=== PATIENT | male | born 1950 | race Caucasian/White ===

== ENCOUNTER 2017-09-17 11:02 | Outpatient (CLI) | payer MEDICARE ==
[2017-09-17 13:25] LABS: Bilirubin Negative (Negative); Blood, Urine Negative (Negative); Clarity Clear (Clear); Glucose, Urine (Dipstick) Negative (Negative); Leukocyte Negative (Negative); Nitrite Negative (Negative); Protein, Urine (Dipstick) Negative (Neg-Trace); Specific Gravity, Urine 1.025 (1.005-1.030); Urobilinogen 0.2 mg/dL (0.2-1.0)
[2017-09-17 14:00] LABS: #Basophils 0.1 thou/uL (0.0-0.2); #Eosinphils 0.5 thou/uL (0.0-0.7); #Lymphocytes 1.8 thou/uL (1.20-3.40); #Monocytes 0.7 thou/uL (0.11-0.59); #Neutrophils 4.9 thou/uL (1.40-6.50); %Basophils 1.5 % (0.0-1.0); %Eosinophils 6.2 % (0.0-10.0); %Lymphocytes 22.9 % (21.0-51.0); %Monocytes 8.4 % (0.0-10.0); %Neutrophils 61.1 % (42.0-75.0); Hemoglobin 14.7 g/dL (14.0-18.0); Mean Corpuscular HGB CONC 32.9 g/dL (32.0-36.0); Mean Corpuscular Hemoglobin 31.1 pg (27.0-31.0); Mean Corpuscular Volume 94.5 fL (78.0-98.0); Mean Platelet Volume 8.9 fL (7.4-10.4); Platelet Count 184 thou/uL (130-400); RBC Distribution Width 11.5 % (11.5-14.5); Red Blood Cell (RBC) Count 4.73 mill/uL (4.70-6.10)
[2017-09-17 14:22] LABS: ALT (SGPT) 32 U/L (8-55); AST (SGOT) 23 U/L (5-34); Albumin 4.2 g/dL (3.4-4.8); Alkaline Phosphatase 63 U/L (40-150); Anion Gap 12 mmol/L (10-20); BUN (Urea Nitrogen) 14 mg/dL (8.4-25.7); Bilirubin, Total 0.4 mg/dL (0.2-1.2); Calc. Creatinine Clearance 0 mL/min (70-130); Calcium 8.7 mg/dL (7.8-10.44); Carbon Dioxide 25 mmol/L (23-31); Cardiac Risk 3.6 (Less than 4.5); Chloride 107 mmol/L (98-107); Cholesterol 129 mg/dl (< 200 Desired); Estimated GFR-MDRD Greater than 90; Globulin 2.4 g/dL (2.4-3.5); Glucose 108 mg/dL (80-115); HDL Cholesterol 36 mg/dL (>60 Neg Risk); LDL Cholesterol, Calculated 77 mg/dL; Potassium 4.3 mmol/L (3.5-5.1); Protein, Total 6.6 g/dL (5.8-8.1); Sodium 140 mmol/L (136-145); Triglycerides 81 mg/dL (Less than 150)
== END 2017-09-17 11:03 | disposition home or self-care (01) ==
LOC: MADLAB 11:02
PROVIDERS: ATTEND Family Medicine
DX: E78.00 Pure hypercholesterolemia, unspecified (principal); D75.89 Other specified diseases of blood and blood-forming organs; I10 Essential (primary) hypertension
CPT/HCPCS: 36415; 80053; 80061; 81003; 85025